=== PATIENT | female | born 2005 | race Caucasian/White ===

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

== ENCOUNTER 2024-01-15 04:24 | Emergency (ER) | payer OTHER ==
[~2024-01-15] VITALS: Ht 177.8 cm; Wt 65.9 kg
[2024-01-15 04:29] VITALS: TEMP 97.4
[2024-01-15 04:56] LABS: BASO % 0.4 % (0.0-2.0); EOS # 0.1 K/mm3 (0.0-0.7); EOS % 1.3 % (0.0-4.0); GRAN # 3.7 K/mm3 (1.4-6.5); GRAN % 44.6 % (42.2-75.2); HEMATOCRIT 43.3 % (35.0-45.0); HEMOGLOBIN 14.7 g/dl (12.0-15.0); LYMPH # 3.7 K/mm3 (1.2-3.4); LYMPH % 44.6 % (20.0-51.0); MEAN CELL VOLUME 89 fl (80.0-95.0); MEAN CORPUSCULAR HEMOGLOBIN 30 pg (26-32); MEAN CORPUSCULAR HGB CONC 34 g/dl (33.0-37.0); MEAN PLATELET VOLUME 9.2 fl (7.4-10.4); MONO # 0.7 K/mm3 (0.1-0.6); PLATELET COUNT 226 K/mm3 (130-400); RED BLOOD COUNT 4.89 M/mm3 (4.10-5.30); REDCELL DISTRIBUTION WIDTH-CV 11.9 % (11.5-14.5)
[2024-01-15] MEDS ORDERED: Ondansetron 4 MG/2 ML VIAL IV ONE (05:00)
[2024-01-15] MEDS ORDERED: NS 1,000 ML IV ONE (05:00)
[2024-01-15] MEDS ORDERED: Ketorolac 30 MG/ML VIAL IV ONE (05:00)
[2024-01-15 05:18] LABS: BILIRUBIN,TOTAL 0.4 mg/dL (0.2-1.2); CALCIUM 9.4 mg/dL (8.4-10.2); CREATININE, serum 0.87 mg/dL (0.57-1.11); POTASSIUM 3.6 mmol/L (3.5-4.5); TOTAL PROTEIN 7.1 gm/dL (6.2-8.1)
[2024-01-15 05:46] LABS: COLLECTION METHOD CLEAN CATCH
[2024-01-15 05:49] LABS: URINE APPEARANCE CLEAR (CLEAR/HAZY); URINE BLOOD NEGATIVE (NEGATIVE); URINE COLOR YELLOW (YELLOW); URINE GLUCOSE NEGATIVE (NEGATIVE); URINE KETONE NEGATIVE (NEGATIVE); URINE NITRATE NEGATIVE (NEGATIVE); URINE PROTEIN(semi-quant) NEGATIVE (NEGATIVE); URINE UROBILINOGEN 0.2 E.U/dL (0.2-1.0)
[2024-01-15] MEDS ORDERED: MIRALAX PA17 GM/Dose PO (05:55)
[2024-01-15] MEDS ORDERED: TORADOL 10MG TA10 MG PO (05:55)
[2024-01-15] MEDS ORDERED: ZOFRAN 4MG T4 MG/TAB PO (05:55)
[2024-01-15 06:00] VITALS: BP 122/76; PULSE 68
== END 2024-01-15 06:00 | disposition home or self-care (01) ==
LOC: COL.ER 04:24
PROVIDERS: Emergency Medicine
DX: K59.00 Constipation, unspecified (principal); R11.2 Nausea with vomiting, unspecified; Z91.040 Latex allergy status
CPT/HCPCS: J1885; J2405; J7030